=== PATIENT | female | born 1965 | race Caucasian/White ===

== ENCOUNTER 2022-06-12 08:50 | Outpatient (CLI) | payer MEDICARE, MEDICAID, SELFPAY | END 2022-06-12 08:51 | disposition home or self-care (01) | LOC: ANHBWCAUD 08:51 | PROVIDERS: PCP Family Medicine; Visit Provider Otolaryngology | DX: H93.19 Tinnitus, unspecified ear (principal); H90.42 Sensorineural hearing loss, unilateral, left ear, with unrestricted hearing on the contralateral side; H90.11 Conductive hearing loss, unilateral, right ear, with unrestricted hearing on the contralateral side | CPT/HCPCS: 92557; 92567 ==